=== PATIENT | female | born 1960 | race Caucasian/White ===

== ENCOUNTER 2016-11-19 17:34 | Emergency (ER) | payer MEDICARE, OTHER ==
[2016-11-19] MEDS ORDERED: GENTAMICIN SULFATE 3.5 APPL TUBE ONE (20:43)
[2016-11-19] MEDS ORDERED: GENTAMICIN SULFATE 3.5 APPL TUBE RIGHTEYE SCH (20:45)
--- NOTE | 2016-11-19 20:45 | ERNOTE ---
[facility] Date of Service: 11/19/16 Presenting Symptoms: eye pain Time Seen by Provider: 11/19/16 20:32 Source: patient Exam Limitations: no limitations - Immun/Allergies/Home Medications Immunizations: IMMUNIZATION HX History of Influenza Vaccine Yes Hx Pneumococcal Vaccination No Allergies/Adverse Reactions: Allergies Allergy/AdvReac Type Severity Reaction Status Date / Time No Known Allergies Allergy Verified 11/19/16 17:50 Home Medications: HOME MEDICATIONS Cyanocobalamin [Vitamin B-12] 1,000 mcg IJ ONCE 12/13/14 [Last Taken Unknown] Estradiol Valerate [Delestrogen] 10 mg IM ONCE 12/13/14 [Last Taken Unknown] Octreotide Acetate [Sandostatin] 200 mcg IJ TID 12/13/14 [Last Taken Unknown] Potassium Chloride [Klor-Con] 20 meq PO DAILY 12/13/14 [Last Taken Unknown] - History of Present Illness Narrative: thought she had something in her eye last week and washed it out with water. She has been using OTC red eye drops that are not seeming to help. Pain in right eye but left eye is somewhat red as well. No definitive injury. No discharge. No other problems. Severity: Present: moderate ENT Location: Present: eye (R), eye (L) Prearrival Treatment: Present: over the counter meds Modifying Factors - Improves: Reports: nothing Associated Symptoms - ENT: Denies: fever, malaise, cough, nasal congestion/ drainage Prior Treament: Denies: recently seen Review of Systems - Review of Systems Constitutional: Present: no symptoms reported. Absent: fever, chills EYE: Present: eye pain, blurred vision. Absent: eye discharge, double vision ENT: Present: no symptoms reported. Absent: sore throat Respiratory: Present: cough Cardiology: Present: no symptoms reported Gastrointestinal/Abdominal: Present: diarrhea - chronic Genitourinary: Present: no symptoms reported - Patient's Past Medical History Patient History - Medical: No pertinent hx Patient History - Cancer: Colon Patient History - Surgical Procedures: Cancer Surgery, Hysterectomy, Other - Social History Smoking Status: Former smoker Have you smoked in the past 12 months: No Do you dip or chew tobacco: No Alcohol Use: none Drug Use: none Physical Exam - Physical Exam General Appearance: Present: wd/wn, alert, mild distress Eye Exam: PERRL: bilateral, EOMI: bilateral, Sclera injection: right, Scleral icterus: bilateral, Eye drainage: bilateral, Eyelid inflammation: bilateral, Conjunctivae pale: bilateral, Photophobia: bilateral, Other: right - no fluorescein uptake, no FB seen. Ears, Nose, Throat: Present: normal ENT inspection Neck: Present: normal inspection, nontender, full range of motion. Absent: lymphadenopathy (R), lymphadenopathy (L) Respiratory: Present: no respiratory distress Skin Exam: Present: normal color, warm/dry ED Progress - Vital Signs Patient's Vital Signs:: I have reviewed the patient's vital signs. Vital Signs: Vital Signs 11/19/16 17:48 Temperature 35.5 C L Pulse Rate 75 Respiratory 14 Rate Blood Pressure 155/64 O2 Sat by Pulse 97 Oximetry - Progress/Reassessment Chief Complaint: Eye Injury/Trauma Plan - Plan Plan: Gentak ointment R eye qid. F/U PCP or eye doctor if not promptly better. Departure Clinical Impression: Conjunctivitis, right eye - Departure Disposition: Home self-care Condition: Good Instructions: Bacterial Conjunctivitis, [id number] Additional Instructions: Apply antibiotic ointment to right eye 4 times per day. You may also use this in the left eye also. Follow up with your doctor or opthalmologist or senior radiation protection technician if not promptly better.
[2016-11-19 20:48] VITALS: BP 129/46
== END 2016-11-19 21:10 | disposition home or self-care (01) ==
LOC: ER 17:34
DX: H10.31 Unspecified acute conjunctivitis, right eye (principal); Z87.891 Personal history of nicotine dependence; Z90.710 Acquired absence of both cervix and uterus; Z85.038 Personal history of other malignant neoplasm of large intestine